=== PATIENT | female | born 1960 | race Caucasian/White ===

== ENCOUNTER 2023-09-02 09:05 | Day surgery (SDC) | payer MEDICARE ==
[~2023-09-02 09:05] MED LIST: Lactated Ringers 1,000 ML IV SCH; Sodium Chloride 0.9% 10 ML Syringe FLUSH PRN; Sodium Chloride 0.9% 10 ML Syringe FLUSH SCH
[2023-09-02] MEDS ORDERED: fentaNYL 100 MCG/2 ML SDV ONE (10:16)
[2023-09-02] MEDS ORDERED: Lidocaine 1% 4 ML ONE (10:16)
[2023-09-02] MEDS ORDERED: Propofol 200 MG/20 ML SDV ONE (10:17)
== END 2023-09-02 11:38 | disposition home or self-care (01) ==
LOC: JD.SDS 09:05
PROVIDERS: ATTEND Surgery
DX: K59.09 Other constipation (principal); Q43.8 Other specified congenital malformations of intestine; E78.00 Pure hypercholesterolemia, unspecified; Z88.0 Allergy status to penicillin; Z88.2 Allergy status to sulfonamides; Z88.8 Allergy status to other drugs, medicaments and biological substances; Z79.899 Other long term (current) drug therapy; Z80.0 Family history of malignant neoplasm of digestive organs
CPT/HCPCS: 45378; J2704; J3010; J7120; J3490